=== PATIENT | female | born 1970 | race Two or more races ===

== ENCOUNTER 2019-03-03 11:28 | Emergency (ER) | payer OTHER ==
[~2019-03-03] VITALS: Ht 170.2 cm; Wt 67.1 kg
[2019-03-03] MEDS ORDERED: AMLODIPINE BESYLATE 5 MG TABLET ONE (11:47)
[2019-03-03] MEDS ORDERED: ACETAMINOPHEN 325 MG TABLET ONE (11:47)
[2019-03-03] MEDS ORDERED: ACETAMINOPHEN 325 MG TABLET PO ONE (12:00)
[2019-03-03] MEDS ORDERED: AMLODIPINE BESYLATE 5 MG TABLET PO ONE (12:00)
[2019-03-03 12:18] VITALS: BP 170/82
--- NOTE | 2019-03-03 12:19 | NUR ---
PT IS MEDICALLY CLEARED FOR BOOKING. D/C TO PD IN STABLE CONDITION.
== END 2019-03-03 12:20 ==
LOC: ER 11:31
DX: I16.0 Hypertensive urgency (principal); R51 Headache

== ENCOUNTER 2019-03-03 22:02 | Emergency (ER) | payer OTHER ==
[~2019-03-03] VITALS: Ht 162.6 cm; Wt 59.0 kg
--- NOTE | 2019-03-03 22:12 | NUR ---
PT BIBLAPD FOR OTB C/O HIGH BLOOD PRESSURE AT THE INTERMEDIATE OF 225/109. PATIENT STATES SEEN HERE IN ER THIS MORNING FOR SAME. DENIES CP/SOB. PT IS AAOX4, NOT IN RESPIRATORY DISTRESS, HOOKED TO MONITOR, KEPT RESTED AND COMFORTABLE, WILL CONTINUE TO MONITOR.
[2019-03-03] MEDS ORDERED: CLONIDINE HCL 0.1 MG TABLET ONE (22:30)
[2019-03-03] MEDS ORDERED: CLONIDINE HCL 0.1 MG TABLET PO ONE (23:00)
[2019-03-03] MEDS ORDERED: hydrALAZINE HCL IV 20 MG VIAL ONE (23:41)
[2019-03-04] MEDS ORDERED: ACETAMINOPHEN ES 500 MG TABLET ONE (00:19)
[2019-03-04 00:23] VITALS: BP 174/74
--- NOTE | 2019-03-04 00:23 | NUR ---
Note win in ED - 03/04/19 at 0027 by RONDA IV removed. Catheter intact and site benign. Pressure and 4x4 applied to site. No bleeding noted. Patient discharged to home in stable condition. Written and verbal after care instructions given. Patient verbalizes understanding of instruction.
--- NOTE | 2019-03-04 00:27 | NUR ---
IV removed. Catheter intact and site benign. Pressure and 4x4 applied to site. No bleeding noted. Patient discharged incustody in stable condition. Written and verbal after care instructions given. Patient verbalizes understanding of instruction.
[2019-03-04] MEDS ORDERED: hydrALAZINE HCL IV 20 MG VIAL IV ONE ×2 (00:30)
[2019-03-04] MEDS ORDERED: ACETAMINOPHEN 325 MG TABLET PO ONE (00:30)
== END 2019-03-04 00:28 ==
LOC: ER 22:03
DX: I10 Essential (primary) hypertension (principal)
CPT/HCPCS: 96374; 99283; J0360